=== PATIENT | female | born 1940 | race Caucasian/White ===

== ENCOUNTER 2017-08-01 10:58 | Emergency (ER) | payer OTHER ==
[~2017-08-01] VITALS: Ht 154.9 cm; Wt 38.4 kg
[2017-08-01 11:04] VITALS: BP 190/92
[2017-08-01 12:12] LABS: BASOPHILS % (AUTO) 0 % (0-1); EOSINOPHILS % (AUTO) 0 % (1-7); LYMPHOCYTES # (AUTO) 0.64 x10^3/uL (1-3.4); LYMPHOCYTES % (AUTO) 7 % (22-44); MD NO; MEAN CORPUSCULAR HEMOGLOBIN 31.6 pg (27.0-34.8); MEAN CORPUSCULAR HGB CONC 33.9 g/dL (32.4-35.8); MEAN CORPUSCULAR VOLUME 93.1 fL (80-100); MEAN PLATELET VOLUME 8.6 fL (7.4-10.4); MONOCYTES # (AUTO) 0.63 x10^3/uL (0.2-0.8); MONOCYTES % (AUTO) 6 % (2-9); NEUTROPHILS # (AUTO) 8.53 x10^3/uL (1.8-6.8); NEUTROPHILS % (AUTO) 87 % (42-75); PLATELET COUNT 196 x10^3/uL (130-400); RED BLOOD COUNT 4.47 x10^6/uL (3.82-5.3); RED CELL DISTRIBUTION WIDTH 15.1 % (9.6-15.2)
[2017-08-01 12:23] LABS: ANION GAP 8 mmol/L (5-15); CALCIUM 9.2 mg/dL (8.5-10.1); CHLORIDE 98 mmol/L (98-107); CREATININE 1.07 mg/dL (0.55-1.02)
== END 2017-08-01 12:43 | disposition home or self-care (01) ==
LOC: ED 12:35
DX: B96.89 Other specified bacterial agents as the cause of diseases classified elsewhere (principal); J20.8 Acute bronchitis due to other specified organisms; J00 Acute nasopharyngitis [common cold]; E78.00 Pure hypercholesterolemia, unspecified; I10 Essential (primary) hypertension
CPT/HCPCS: 36415; 80048; 82040; 85025; 99285

== ENCOUNTER 2018-06-06 03:32 | Observation (INO) | payer OTHER ==
[~2018-06-06] VITALS: Ht 149.9 cm; Wt 43.5 kg
[2018-06-06 03:59] LABS: BASOPHILS # (AUTO) 0.03 x10^3/uL (0-0.1); BASOPHILS % (AUTO) 0 % (0-1); EOSINOPHILS # (AUTO) 0.18 x10^3/uL (0-0.4); EOSINOPHILS % (AUTO) 1 % (1-7); LYMPHOCYTES # (AUTO) 1.94 x10^3/uL (1-3.4); LYMPHOCYTES % (AUTO) 13 % (22-44); MD NO; MEAN CORPUSCULAR HEMOGLOBIN 31.5 pg (27.0-34.8); MEAN CORPUSCULAR HGB CONC 33.9 g/dL (32.4-35.8); MEAN CORPUSCULAR VOLUME 93.1 fL (80-100); MEAN PLATELET VOLUME 8.6 fL (7.4-10.4); MONOCYTES # (AUTO) 0.45 x10^3/uL (0.2-0.8); MONOCYTES % (AUTO) 3 % (2-9); NEUTROPHILS % (AUTO) 82 % (42-75); PLATELET COUNT 236 x10^3/uL (130-400); RED BLOOD COUNT 4.07 x10^6/uL (3.82-5.3); RED CELL DISTRIBUTION WIDTH 14.3 % (9.6-15.2)
[2018-06-06] MEDS ORDERED: SODIUM CHLORIDE FLUSH 10ML SYR IVF ONE (04:00)
[2018-06-06 04:09] LABS: ALANINE AMINOTRANSFERASE 23 U/L (12-78); ALBUMIN 3.6 g/dL (3.4-5.0); ANION GAP 8 mmol/L (5-15); CALCIUM 9.4 mg/dL (8.5-10.1); CHLORIDE 106 mmol/L (98-107); CREATININE 1.05 mg/dL (0.55-1.02)
[2018-06-06] MEDS ORDERED: LEVO25TA4 PO (04:10)
[2018-06-06] MEDS ORDERED: SIMV5TAB5 PO (04:10)
[2018-06-06] MEDS ORDERED: MONT4GRA2 PO (04:10)
[2018-06-06] MEDS ORDERED: METO200T47 PO (04:10)
[2018-06-06 04:12] LABS: ALKALINE PHOSPHATASE 46 U/L (45-117); BILIRUBIN,TOTAL 0.4 mg/dL (0.2-1.0); TOTAL PROTEIN 7.2 g/dL (6.4-8.2); TROPONIN I 0.115 ng/mL (0.000-0.045)
[2018-06-06] MEDS ORDERED: ASPIRIN 325 MG TABLET PO ONE (04:30)
[2018-06-06] MEDS ORDERED: ASPIRIN 325 MG TABLET ONE (05:05)
[2018-06-06 05:53] VITALS: BP 192/85
[2018-06-06 06:00] VITALS: BP 166/61
[2018-06-06] MEDS ORDERED: DOCUSATE 100 MG CAPSULE PO PRN (06:30)
[2018-06-06] MEDS: ASPIRIN 325 MG TABLET EC PO SCH (06:30)
[2018-06-06] MEDS ORDERED: LABETALOL 5MG/ML, 20ML IVPush PRN (06:30)
[2018-06-06] MEDS ORDERED: hydrALAzine 20 MG/ML, 1ML IVPush PRN (06:30)
[2018-06-06] MEDS ORDERED: PROMETHAZINE 25 MG/ML, 1ML IM PRN (06:30)
[2018-06-06] MEDS ORDERED: ONDANSETRON 2MG/ML, 2ML IVPush PRN (06:30)
[2018-06-06] MEDS ORDERED: morphine SULFATE 10 MG/ML, 1ML IVPush PRN (06:30)
[2018-06-06] MEDS ORDERED: ACETAMINOPHEN 325 MG TABLET PO PRN (06:30)
[2018-06-06] MEDS ORDERED: POLYETHYLENE GLYCOL 17 GM PACKET PO PRN (06:30)
[2018-06-06] MEDS ORDERED: NITROGLYCERIN 0.4 MG BOTTLE (25 TABS) SL PRN (06:30)
[2018-06-06] MEDS ORDERED: OXYcodone IR 5MG TABLET PO PRN (06:30)
[2018-06-06] MEDS ORDERED: BISACODYL 10 MG SUPP PR PRN (06:30)
[2018-06-06] MEDS ORDERED: ONDANSETRON ODT 4 MG PO PRN (06:30)
[2018-06-06 06:45] VITALS: BP 153/75
[2018-06-06 07:52] LABS: FREE T4 (FREE THYROXINE) 1.24 ng/dL (0.76-1.46); THYROID STIMULATING HORMONE 4.85 mIU/L (0.358-3.740)
[2018-06-06 07:58] LABS: HEMOGLOBIN A1C 5.6 % (4.2-6.3)
[2018-06-06] MEDS: HEPARIN 5,000 UNITS/ML, 1ML SQ SCH ×2 (09:11→16:37)
[2018-06-06 09:14] LABS: CULTURE INDICATED? NO; MICROSCOPIC NOT IND
[2018-06-06] MEDS: SODIUM CHLORIDE 0.9% 1,000 ML IV SCH ×2 (09:18→21:55)
[2018-06-06 10:44] LABS: TROPONIN I 0.576 ng/mL (0.000-0.045)
[2018-06-06 12:29] VITALS: BP 149/67
[2018-06-06] MEDS ORDERED: MONT10TA6 PO (12:49)
[2018-06-06] MEDS: CARVEDILOL 6.25 MG TABLET PO SCH ×2 (12:55→17:52)
[2018-06-06 13:29] LABS: TROPONIN I 0.334 ng/mL (0.000-0.045)
[2018-06-06 18:56] VITALS: BP 175/73
[2018-06-06 23:50] LABS: TROPONIN I 0.183 ng/mL (0.000-0.045)
[2018-06-07 00:13] VITALS: BP 156/72
[2018-06-07] MEDS: LOSARTAN 50MG TABLET PO SCH ×2 (00:20→08:22)
[2018-06-07] MEDS: HEPARIN 5,000 UNITS/ML, 1ML SQ SCH ×3 (02:28→15:54)
[2018-06-07 05:42] LABS: BASOPHILS # (AUTO) 0.02 x10^3/uL (0-0.1); BASOPHILS % (AUTO) 0 % (0-1); EOSINOPHILS # (AUTO) 0.09 x10^3/uL (0-0.4); EOSINOPHILS % (AUTO) 1 % (1-7); LYMPHOCYTES # (AUTO) 1.61 x10^3/uL (1-3.4); LYMPHOCYTES % (AUTO) 22 % (22-44); MD NO; MEAN CORPUSCULAR HEMOGLOBIN 31.7 pg (27.0-34.8); MEAN CORPUSCULAR HGB CONC 33.8 g/dL (32.4-35.8); MEAN CORPUSCULAR VOLUME 93.8 fL (80-100); MEAN PLATELET VOLUME 8.5 fL (7.4-10.4); MONOCYTES # (AUTO) 0.52 x10^3/uL (0.2-0.8); MONOCYTES % (AUTO) 7 % (2-9); NEUTROPHILS # (AUTO) 5.02 x10^3/uL (1.8-6.8); NEUTROPHILS % (AUTO) 69 % (42-75); PLATELET COUNT 215 x10^3/uL (130-400); RED BLOOD COUNT 4.06 x10^6/uL (3.82-5.3); RED CELL DISTRIBUTION WIDTH 14.6 % (9.6-15.2)
[2018-06-07 05:52] LABS: ALANINE AMINOTRANSFERASE 21 U/L (12-78); ALBUMIN 3.2 g/dL (3.4-5.0); ANION GAP 9 mmol/L (5-15); CALCIUM 8.4 mg/dL (8.5-10.1); CHLORIDE 104 mmol/L (98-107); CHOLESTEROL, TOTAL 202 mg/dL (140-239); CREATININE 0.83 mg/dL (0.55-1.02); TRIGLYCERIDES 78 mg/dL (50-200); VLDL CHOLESTEROL 16 mg/dL (0-25)
[2018-06-07 05:53] LABS: ALKALINE PHOSPHATASE 35 U/L (45-117); BILIRUBIN,TOTAL 0.5 mg/dL (0.2-1.0); HDL CHOL % 50 % (28-40); HDL CHOLESTEROL (DIRECT) 100 mg/dL (40-60); TOTAL PROTEIN 6.5 g/dL (6.4-8.2)
[2018-06-07 05:54] LABS: LDL CHOLESTEROL,CALCULATED 86 mg/dL (54-169); LDL/HDL RATIO 0.9 (0.5-3.0)
[2018-06-07 05:55] VITALS: BP 172/82
[2018-06-07 05:56] LABS: TROPONIN I 0.141 ng/mL (0.000-0.045)
[2018-06-07] MEDS: ASPIRIN 325 MG TABLET EC PO SCH (06:05)
[2018-06-07] MEDS: CARVEDILOL 6.25 MG TABLET PO SCH (06:05)
[2018-06-07 07:19] VITALS: BP 151/72
[2018-06-07] MEDS ORDERED: REGADENOSON 0.4 MG/5 ML SYRINGE ONE (12:47)
[2018-06-07] MEDS ORDERED: AMLODIPINE 5 MG TABLET PO SCH (13:30)
[2018-06-07 15:52] VITALS: BP 150/76
[2018-06-07] MEDS ORDERED: LOSA50TA2 PO (16:49)
[2018-06-07] MEDS ORDERED: CARV12.543 PO (16:49)
[2018-06-07] MEDS ORDERED: HYDR-3342 PO (16:49)
[2018-06-07] MEDS ORDERED: CARVEDILOL 12.5 MG TABLET PO SCH (18:00)
[2018-06-07] MEDS ORDERED: SIMVASTATIN 5 MG TABLET PO SCH (21:00)
[2018-06-07] MEDS ORDERED: SIMVASTATIN 40 MG TABLET PO SCH (21:00)
[2018-06-07] MEDS ORDERED: MONTELUKAST 10 MG TABLET PO SCH (21:00)
[2018-06-08] MEDS ORDERED: LEVOTHYROXINE 25 MCG TABLET PO SCH (09:00)
== END 2018-06-07 18:03 | disposition home or self-care (01) ==
LOC: ED 04:06 → EDIP 04:29 → INTOOBSV 04:29 → 5SO 05:31
PROVIDERS: ADMIT Internal Medicine; ATTEND Internal Medicine
DX: R42 Dizziness and giddiness (principal); I12.9 Hypertensive chronic kidney disease with stage 1 through stage 4 chronic kidney disease, or unspecified chronic kidney disease; I21.4 Non-ST elevation (NSTEMI) myocardial infarction; N18.2 Chronic kidney disease, stage 2 (mild); E78.5 Hyperlipidemia, unspecified; E03.9 Hypothyroidism, unspecified; D72.829 Elevated white blood cell count, unspecified; E78.00 Pure hypercholesterolemia, unspecified; I08.1 Rheumatic disorders of both mitral and tricuspid valves; I65.23 Occlusion and stenosis of bilateral carotid arteries; Z79.899 Other long term (current) drug therapy
CPT/HCPCS: 36415; 70551; 71045; 78452; 80053; 80061; 81003; 82306; 82607; 83036; 83735; 84439; 84443; 84484; 85025; 93005; 93017; 93306; 93880; 96360; 96361; 96372; 97161; 97165; 99285; A9502; C9898; G0378; G8978; G8979; G8980; J1644; J2785; J7030

== ENCOUNTER 2020-12-02 12:01 | Outpatient (CLI) | payer MEDICARE, OTHER ==
[~2020-12-02 12:01] MED LIST: ASPI81TA45 PO; ATOR-2 PO; CARV12.543 PO; CLOP75TA52 PO; HYDR-3342 PO; LEVO25TA4 PO; LOSA100T14 PO; LOSA50TA2 PO; METO200T47 PO; MONT10TA6 PO; MONT4GRA2 PO; REGADENOSON 0.4 MG/5 ML SYRINGE ONE; SIMV5TAB14 PO
== END 2020-12-02 23:59 | disposition home or self-care (01) ==
LOC: CFH 12:01
PROVIDERS: ATTEND Internal Medicine Cardiovascular Disease
DX: I10 Essential (primary) hypertension (principal); R07.9 Chest pain, unspecified
CPT/HCPCS: 78452; 93017; A9502; J2785